=== PATIENT | male | born 1970 | race Caucasian/White ===

== ENCOUNTER 2022-11-07 21:02 | Inpatient (IN) | payer OTHER, MEDICARE ==
[2022-11-07 23:18] VITALS: BMI 28.3
[2022-11-07] MEDS ORDERED: Acetaminophen 650 MG Suppository PR PRN (23:40)
[2022-11-07] MEDS ORDERED: Ondansetron ODT 4 MG TAB PO PRN (23:40)
[2022-11-07] MEDS ORDERED: Acetaminophen 325 MG TAB PO PRN (23:40)
[2022-11-07] MEDS ORDERED: Dextrose 50% Abboject 50 ML SYRINGE SLOW IVP PRN (23:40)
[2022-11-07] MEDS ORDERED: Dextrose 5% in Water 1,000 ML IV PRN (23:40)
[2022-11-07] MEDS ORDERED: HumaLOG 300 UNITS/3 ML VIAL SC PRN ×2 (23:40)
[2022-11-07] MEDS ORDERED: Lactated Ringer's 1,000 ML IV SCH (23:45)
[2022-11-08] MEDS: Lactated Ringer's 1,000 ML IV SCH ×2 (03:00→12:06)
[2022-11-08 06:07] LABS: #Basophils 0.1 thou/uL (0.0-0.2); #Eosinphils 0.5 thou/uL (0.0-0.7); #Lymphocytes 2.6 thou/uL (1.20-3.40); #Monocytes 0.8 thou/uL (0.11-0.59); #Neutrophils 3.9 thou/uL (1.40-6.50); %Basophils 1.3 % (0.0-1.0); %Eosinophils 6.1 % (0.0-10.0); %Lymphocytes 33.5 % (21.0-51.0); %Monocytes 9.8 % (0.0-10.0); %Neutrophils 49.3 % (42.0-75.0); Hemoglobin 13.4 g/dL (14.0-18.0); Mean Corpuscular Hemoglobin 30.7 pg (27.0-31.0); Mean Corpuscular Volume 90.4 fl (78.0-98.0); Mean Platelet Volume 8.4 fL (7.4-10.4); Platelet Count 156 10x3/uL (130-400); RBC Distribution Width 12.4 % (11.5-14.5); Red Blood Cell (RBC) Count 4.36 mill/uL (4.70-6.10); White Blood Cell (WBC) Count 7.8 10x3/uL (4.8-10.8)
[2022-11-08 06:37] LABS: ALT (SGPT) 18 U/L (8-55); AST (SGOT) 30 U/L (5-34); Alkaline Phosphatase 87 U/L (40-110); Anion Gap 14 mmol/L (10-20); BUN (Urea Nitrogen) 15 mg/dL (8.4-25.7); Bilirubin, Total 0.6 mg/dL (0.2-1.2); Calc. Creatinine Clearance 99 mL/min (70-130); Calcium 9.2 mg/dL (7.8-10.44); Carbon Dioxide 25 mmol/L (22-29); Chloride 102 mmol/L (98-107); Estimated GFR 78; Globulin 3.5 g/dL (2.4-3.5); Glucose 77 mg/dL (70-105); Potassium 3.7 mmol/L (3.5-5.1); Protein, Total 7.5 g/dL (6.0-8.3); Sodium 137 mmol/L (136-145)
[2022-11-08] MEDS ORDERED: Vancomycin HCl 1.5 GM in Sodium Chloride 0.9% 250 ML 300 ML IVPB SCH (08:00)
[2022-11-08] MEDS: Vancomycin HCl 750 MG in Sodium Chloride 0.9% 250 ML 250 ML IVPB SCH ×2 (08:20→20:19)
[2022-11-08] MEDS: FLUoxetine HCl 20 MG CAP PO SCH (08:24)
[2022-11-08] MEDS: Atorvastatin Calcium 20 MG TAB PO SCH (08:25)
[2022-11-08] MEDS: Bupropion 150 MG SR TAB PO SCH ×2 (08:25→20:19)
[2022-11-08] MEDS: Lisinopril 20 MG TAB PO SCH (08:25)
[2022-11-08] MEDS ORDERED: Cefepime 2 GM in Sodium Chloride 0.9% 100 ML IVPB SCH (09:00)
[2022-11-08] MEDS: Cefepime 2 GM in Sodium Chloride 0.9% 100 ML IVPB SCH ×2 (09:54→21:59)
[2022-11-08] MEDS: metFORMIN 500 MG TAB PO SCH (16:19)
[2022-11-08] MEDS: HumuLIN 70/30 (300 UNITS/3 ML VIAL) SC SCH (16:21)
[2022-11-09] MEDS: Lactated Ringer's 1,000 ML IV SCH ×4 (00:10→17:02)
[2022-11-09] MEDS: metFORMIN 500 MG TAB PO SCH ×2 (08:22→17:02)
[2022-11-09] MEDS: Atorvastatin Calcium 20 MG TAB PO SCH (08:23)
[2022-11-09] MEDS: FLUoxetine HCl 20 MG CAP PO SCH (08:23)
[2022-11-09] MEDS: HumuLIN 70/30 (300 UNITS/3 ML VIAL) SC SCH ×2 (08:24→17:01)
[2022-11-09] MEDS: Lisinopril 20 MG TAB PO SCH (08:24)
[2022-11-09] MEDS: Bupropion 150 MG SR TAB PO SCH ×2 (09:13→20:34)
[2022-11-09] MEDS: Vancomycin HCl 750 MG in Sodium Chloride 0.9% 250 ML 250 ML IVPB SCH (09:15)
[2022-11-09] MEDS: Cefepime 2 GM in Sodium Chloride 0.9% 100 ML IVPB SCH ×2 (09:22→21:45)
[2022-11-09 09:25] LABS: #Basophils 0.1 thou/uL (0.0-0.2); #Eosinphils 0.5 thou/uL (0.0-0.7); #Lymphocytes 2.1 thou/uL (1.20-3.40); #Monocytes 0.6 thou/uL (0.11-0.59); #Neutrophils 4.5 thou/uL (1.40-6.50); %Basophils 1.4 % (0.0-1.0); %Eosinophils 6.1 % (0.0-10.0); %Lymphocytes 26.9 % (21.0-51.0); %Monocytes 7.7 % (0.0-10.0); Mean Corpuscular HGB CONC 33.8 g/dL (32.0-36.0); Mean Corpuscular Hemoglobin 30.9 pg (27.0-31.0); Mean Corpuscular Volume 91.3 fl (78.0-98.0); Mean Platelet Volume 8.3 fL (7.4-10.4); Platelet Count 182 10x3/uL (130-400); RBC Distribution Width 12.5 % (11.5-14.5); Red Blood Cell (RBC) Count 4.84 mill/uL (4.70-6.10); White Blood Cell (WBC) Count 7.7 10x3/uL (4.8-10.8)
[2022-11-09 09:31] LABS: Anion Gap 13 mmol/L (10-20); BUN (Urea Nitrogen) 12 mg/dL (8.4-25.7); Calc. Creatinine Clearance 99 mL/min (70-130); Calcium 9.8 mg/dL (7.8-10.44); Carbon Dioxide 28 mmol/L (22-29); Chloride 101 mmol/L (98-107); Estimated GFR 78; Glucose 108 mg/dL (70-105); Potassium 4.3 mmol/L (3.5-5.1); Sodium 138 mmol/L (136-145)
[2022-11-09] MEDS: VANCOMYCIN 1.25 GM/250 ML BAG 1.25 GM in Premix Bag 1 BAG IVPB SCH ×2 (09:58→23:02)
[2022-11-09] MEDS ORDERED: fentaNYL PF 100 MCG/2 ML SYRINGE ONE (17:05)
[2022-11-09] MEDS ORDERED: Lidocaine 1% PF 5 ML VIAL ONE (18:33)
[2022-11-09] MEDS ORDERED: PROPOFOL 200 MG/20 ML VIAL ONE (18:33)
[2022-11-09] MEDS ORDERED: Ondansetron PF 4 MG/2 ML Vial ONE (18:33)
[2022-11-09] MEDS ORDERED: Bupivacaine PF 0.5% 30 ML VIAL ONE (18:47)
[2022-11-09] MEDS ORDERED: HYDROcodone/Acetaminophen 7.5/325 mg Tablet PO PRN (20:18)
[2022-11-10] MEDS: Lactated Ringer's 1,000 ML IV SCH (04:38)
[2022-11-10 07:20] LABS: #Lymphocytes 1.3 thou/uL (1.20-3.40); #Monocytes 0.5 thou/uL (0.11-0.59); %Basophils 0.4 % (0.0-1.0); %Eosinophils 0.3 % (0.0-10.0); %Lymphocytes 14.7 % (21.0-51.0); %Monocytes 5.5 % (0.0-10.0); %Neutrophils 79.1 % (42.0-75.0); Hemoglobin 13.6 g/dL (14.0-18.0); Mean Corpuscular HGB CONC 34.3 g/dL (32.0-36.0); Mean Corpuscular Hemoglobin 30.7 pg (27.0-31.0); Mean Corpuscular Volume 89.5 fl (78.0-98.0); Mean Platelet Volume 8.3 fL (7.4-10.4); Platelet Count 171 10x3/uL (130-400); RBC Distribution Width 12.2 % (11.5-14.5); Red Blood Cell (RBC) Count 4.43 mill/uL (4.70-6.10); White Blood Cell (WBC) Count 8.9 10x3/uL (4.8-10.8)
[2022-11-10 07:37] LABS: Anion Gap 14 mmol/L (10-20); BUN (Urea Nitrogen) 14 mg/dL (8.4-25.7); Calc. Creatinine Clearance 113 mL/min (70-130); Calcium 9.7 mg/dL (7.8-10.44); Carbon Dioxide 24 mmol/L (22-29); Chloride 102 mmol/L (98-107); Estimated GFR 91; Glucose 124 mg/dL (70-105); Potassium 4.1 mmol/L (3.5-5.1); Sodium 136 mmol/L (136-145)
[2022-11-10] MEDS: HumuLIN 70/30 (300 UNITS/3 ML VIAL) SC SCH (09:48)
[2022-11-10] MEDS: FLUoxetine HCl 20 MG CAP PO SCH (09:49)
[2022-11-10] MEDS: metFORMIN 500 MG TAB PO SCH (09:49)
[2022-11-10] MEDS: Lisinopril 20 MG TAB PO SCH (09:49)
[2022-11-10] MEDS: Atorvastatin Calcium 20 MG TAB PO SCH (09:50)
[2022-11-10] MEDS: Bupropion 150 MG SR TAB PO SCH (09:50)
[2022-11-10] MEDS: Cefepime 2 GM in Sodium Chloride 0.9% 100 ML IVPB SCH (09:50)
[2022-11-10] MEDS: VANCOMYCIN 1.25 GM/250 ML BAG 1.25 GM in Premix Bag 1 BAG IVPB SCH (10:50)
[2022-11-10 12:30] VITALS: BP 148/76; TEMP 97.9
== END 2022-11-10 15:45 | disposition home health service (06) | DRG 617 ==
LOC: SURG A 22:23
PROVIDERS: ADMIT Student in an Organized Health Care Education/Training Program; ATTEND Family Medicine
PROC: 0Y6X0Z0 Detachment at Right 5th Toe, Complete, Open Approach (ICD-10-PCS; principal; 2022-11-09)
PROC: 0JBR0ZZ Excision of Left Foot Subcutaneous Tissue and Fascia, Open Approach (ICD-10-PCS; 2022-11-09)
DX: E11.69 Type 2 diabetes mellitus with other specified complication (principal); M00.871 Arthritis due to other bacteria, right ankle and foot; M86.8X7 Other osteomyelitis, ankle and foot; N17.9 Acute kidney failure, unspecified; E11.621 Type 2 diabetes mellitus with foot ulcer; L97.522 Non-pressure chronic ulcer of other part of left foot with fat layer exposed; F32.A Depression, unspecified; J45.909 Unspecified asthma, uncomplicated; E78.5 Hyperlipidemia, unspecified; N18.9 Chronic kidney disease, unspecified; E11.22 Type 2 diabetes mellitus with diabetic chronic kidney disease; I12.9 Hypertensive chronic kidney disease with stage 1 through stage 4 chronic kidney disease, or unspecified chronic kidney disease; E11.65 Type 2 diabetes mellitus with hyperglycemia; L97.519 Non-pressure chronic ulcer of other part of right foot with unspecified severity; Z79.899 Other long term (current) drug therapy; Z79.4 Long term (current) use of insulin; Z79.84 Long term (current) use of oral hypoglycemic drugs; Z83.3 Family history of diabetes mellitus; Z87.891 Personal history of nicotine dependence
CPT/HCPCS: 36415; 36416; 80048; 80053; 80202; 85025; 85652; 97139; J0692; J1815; J2405; J2704; J3370; J3490; J7050; J7120; S0020